=== PATIENT | male | born 1955 | race Caucasian/White ===

== ENCOUNTER 2016-10-14 06:41 | Day surgery (SDC) | payer BC ==
[2016-10-06 14:15] VITALS: BMI 28.1
[2016-10-14] MEDS ORDERED: MIDAZOLAM HCL 2 MG/2 ML SINGLE DOSE VIAL ONE (07:21)
[2016-10-14] MEDS ORDERED: SUCCINYLCHOLINE CHLORIDE 200 MG/10 ML VIAL ONE (07:21)
[2016-10-14] MEDS ORDERED: PROPOFOL 20 ML ONE (07:21)
[2016-10-14] MEDS ORDERED: LIDOCAINE HCL/PF 2% SDV 5ML VIAL ONE (07:24)
[2016-10-14] MEDS ORDERED: EPINEPHrine/PF 1 MG/1 ML (1:1,000) AMPULE ONE (07:28)
[2016-10-14] MEDS ORDERED: ONDANSETRON 4 MG/2 ML VIAL ONE (08:17)
[2016-10-14] MEDS ORDERED: DEXAMETHASONE SOD PHOSPHATE 4 MG/1 ML VIAL ONE (08:17)
[2016-10-14] MEDS ORDERED: ROCURONIUM BROMIDE 50 MG/5 ML VIAL ONE (08:21)
[2016-10-14] MEDS ORDERED: NEOSTIGMINE METHYLSULFATE 0.5 MG/ML - 10 ML MDV ONE (08:42)
[2016-10-14] MEDS ORDERED: GLYCOPYRROLATE 0.2 MG/1 ML VIAL ONE (08:42)
[2016-10-14] MEDS ORDERED: oxyCODONE HCL 5 MG TABLET PO PRN (09:06)
[2016-10-14] MEDS ORDERED: LACTATED RINGERS SOLUTION 1,000 ML IV SCH (09:15)
[2016-10-14] MEDS ORDERED: PROMETHAZINE HCL 25 MG/1 ML VIAL IVPUSH PRN (09:40)
--- NOTE | 2016-10-14 09:42 | OP ---
Candelario Hernandez 1955 DATE OF OPERATION: 10/14/2016 PREOPERATIVE DIAGNOSIS: Left vocal cord lesion. POSTOPERATIVE DIAGNOSIS: Left vocal cord lesion. PROCEDURE: Direct microlaryngoscopy with excision of left vocal cord lesion. SURGEON: Ortiz Sánchez MD ANESTHESIOLOGIST: Tre Chavarria MD INDICATIONS: The patient is a 61-year-old man with hoarseness of several years duration which was getting worse. On physical examination, an anterior left vocal cord lesion was identified. The nature and purpose of the proposed procedure as well as the risks, benefits, alternatives, and possible complications were discussed in detail with the patient, who appears to understand and wishes to proceed with surgery. All questions were answered, and an informed consent was given by the patient. PROCEDURE DESCRIPTION FOLLOWS: With the patient under general endotracheal anesthesia in the supine position, he was prepped and draped in the usual sterile fashion. After placing a dental guard on the upper teeth, a direct laryngoscope was inserted into the oral cavity. the oropharynx and hypopharynx were noted to be normal. The endolarynx was brought into view and the laryngoscope was suspended on a Quinonez stand. This revealed a cystic-appearing subepithelial mass on the left anterior true vocal cord. Under microscopic guidance,the mass was sharply resected. Hemostasis was achieved with topical epinephrine. When the procedure was over, the laryngoscope was taken off of suspension was removed, and the laryngoscope was withdrawn. When the patient awakened, he was extubated and discharged to the recovery room in satisfactory condition. Estimated blood loss was less than 1 mL. There were no complications. ORTIZ SÁNCHEZ M.D. /[id number] MTDD
[2016-10-14] MEDS ORDERED: ACETAMINOPHEN 325 MG TABLET (FP) ONE (10:11)
[2016-10-14] MEDS ORDERED: ACETAMINOPHEN 325 MG TABLET (FP) PO PRN (12:03)
[2016-10-14 15:14] VITALS: TEMP 97.4
[2016-10-14 15:57] VITALS: BP 132/76; PULSE 68
--- NOTE | 2016-10-22 11:18 | PATH ---
Surgical Pathology Report Patient Name: SHELDON MATIAS Med. Rec. #: [id number] /Age/Gender: 1955 (Age: 61) / M Account: [id number] Location: [facility] Taken: 10/14/2016 Received: 10/14/2016 Reported: 10/16/2016 Physicians: Ortiz Sánchez Specimen(s) Received LEFT VOCAL CORD BIOPSY Clinical History Left vocal cord lesion Final Diagnosis VOCAL CORD, LEFT, LESION, EXCISION: VOCAL CORD POLYP. Electronically Signed Kristyn Koo M.D. Gross Description Received in formalin labeled "left vocal cord lesion," is a 0.6 x 0.4 x 0.3 cm [place], irregular portion of soft tissue which is submitted in toto in one cassette. /10/14/201610/14/2016
== END 2016-10-14 11:15 | disposition home or self-care (01) ==
LOC: FASU 06:41
PROVIDERS: ATTEND Otolaryngology
PROC: 0CBV8ZZ Excision of Left Vocal Cord, Via Natural or Artificial Opening Endoscopic (ICD-10-PCS; principal; 2016-10-14 07:30)
DX: J38.3 Other diseases of vocal cords (principal)
CPT/HCPCS: 88305-TC; 94760